=== PATIENT | male | born 1960 | race Caucasian/White ===

== ENCOUNTER 2021-05-03 08:52 | Emergency (ER) | payer SELFPAY ==
[~2021-05-03] VITALS: Ht 177.8 cm; Wt 69.0 kg
[2021-05-03 08:52] VITALS: BP 115/76
[2021-05-03] MEDS ORDERED: IOHEXOL 300 MG/ML 75 ML VIAL. IV ONE (09:45)
[2021-05-03] MEDS ORDERED: MORPHINE SULFATE 4 MG/ML DISP.SYRIN. IV PRN (09:45)
[2021-05-03] MEDS ORDERED: CONTRAST GIVEN. MC PRN (10:00)
--- NOTE | 2021-05-03 10:01 | PHYS DOC ---
Past History Past Surgical History: Other Additional Past Surgical Histo: left shoulder and finger General Adult EDM: Chief Complaint: ABDOMINAL PAIN HPI: HPI: Patient is a 60 year old male without past medical history who presents with 3 days of periumbilical abdominal pain. Is been constant since starting. Constantly worsening. Moves slightly to the left, but otherwise does not radiate. He has associated loss of appetite, but no vomiting. Slight nausea. No diarrhea or constipation. Normal BM earlier today. No bloody stools. No black tarry stools. No dysuria, urgency, or frequency. No back pain. He is not a drinker. Occasional THC. No tobacco use. Review of Systems: Review of Systems: Constitutional: Denies fever or chills Eyes: Denies change in visual acuity HENT: Denies nasal congestion or sore throat Respiratory: Denies cough or shortness of breath Cardiovascular: Denies chest pain or edema GI: Denies abdominal pain, nausea, vomiting, bloody stools or diarrhea : Denies dysuria Musculoskeletal: Denies back pain or joint pain Integument: Denies rash Neurologic: Denies headache, focal weakness or sensory changes Endocrine: Denies polyuria or polydipsia Lymphatic: Denies swollen glands Psychiatric: Denies depression or anxiety Family History: Family History: No pertinent family history Current Medications: Current Meds: Current Medications Medications (Trade) Dose Ordered Sig/Sherri Start Time Stop Time Status Last Admin Dose Admin Info (Do NOT chart on this entry -- for MONITORING) 1 each PRN DAILY PRN 05/03/21 10:00 05/05/21 09:59 Iohexol (Omnipaque 300 Mg/ml) 75 ml 1X ONCE 05/03/21 09:45 05/03/21 09:47 DC Morphine Sulfate (Morphine 4mg Syringe) 4 mg 1X PRN 05/03/21 09:45 Allergies: Allergies: Allergies Coded Allergies Type Severity Reaction Last Updated Verified No Known Drug Allergies 05/03/21 No Physical Exam: PE: Constitutional: Appears uncomfortable. Well developed, well nourished, no acute distress, non-toxic appearance. [] HENT: Normocephalic, atraumatic, bilateral external ears normal, oropharynx moist, no oral exudates, nose normal. [] Eyes: PERRLA, EOMI, conjunctiva normal, no discharge. [] Neck: Normal range of motion, no tenderness, supple, no stridor. [] Cardiovascular:Heart rate regular rhythm, no murmur [] Lungs & Thorax: Bilateral breath sounds clear to auscultation [] Abdomen: Soft. Periumbilical abdominal tenderness. Mild guarding. No rebound. Skin: Warm, dry, no erythema, no rash. [] Back: No tenderness, no CVA tenderness. [] Extremities: No tenderness, no cyanosis, no clubbing, ROM intact, no edema. [] Neurologic: Alert and oriented X 3, normal motor function, normal sensory function, no focal deficits noted. [] Psychologic: Affect normal, judgement normal, mood normal. [] Current Patient Data: Vital Signs: Vital Signs Date Time Temp Pulse Resp B/P (MAP) Pulse Ox O2 Delivery O2 Flow Rate FiO2 05/03/21 08:52 98.1 66 16 115/76 98 Room Air EKG: EKG: NA [] Radiology/Procedures: Radiology/Procedures: CT abdomen/pelvis [] Impressions: [place] [address] IMAGING REPORT Signed PATIENT: VALERIO BORRERO LACCOUNT: [id number] : 1960 LOCATION: ER AGE: 60 SEX: M EXAM STATUS: REG ER ORD. PHYSICIAN: MASTER FLORENTINO MD REASON: periumbilical abdominal pain- CONTRAST ORDERED PROCEDURE: CT ABD PELV W/ IV CONTRST ONLY Exam: CT abdomen/pelvis with intravenous contrast Indication: Periumbilical pain Comparison: None Technique: Helical CT imaging performed of the abdomen and pelvis after the intravenous administration of contrast. Sagittal and coronal reformats were obtained. One or more of the following individualized dose reduction techniques were utilized for this examination: 1. Automated exposure control 2. Adjustment of the mA and/or kV according to patient size 3. Use of iterative reconstruction technique. FINDINGS: Lower chest: Lung bases are clear. Heart is normal in size. Liver: Normal noncontrast appearance of the liver. Gallbladder/Biliary Tree: Normal. Pancreas: Normal. Spleen: Normal. Adrenal Glands: Normal. Kidneys/Ureters/Bladder: Kidneys are normal in size and enhance symmetrically. No hydronephrosis. Ureters and bladder are normal. Reproductive Organs: Normal. Stomach, small bowel, and colon: The stomach is normal. There is no small bowel obstruction. Probable normal appendix seen in the pelvis (image [id number] coronal series). No inflammation in the right lower quadrant. There are a few colonic diverticula. Vasculature: No aortic aneurysm. Lymph Nodes: No lymphadenopathy. Peritoneum and retroperitoneum: No free fluid or free air. Bones: No acute osseous abnormality. Other: No abdominal wall or inguinal hernia. IMPRESSION: No acute abnormality in the abdomen and pelvis. Electronically signed by: Hetal Koenig MD (05/03/2021 11:09 AM) [id number] DICTATED AND SIGNED BY: HETAL KOENIG MD DATE: 05/03/21 105 CC: MASTER FLORENTINO MD; PCP,NO ~MTH0 0 Heart Score: C/O Chest Pain: N/A Risk Factors: Risk Factors: DM, Current or recent (<one month) smoker, HTN, HLP, family history of CAD, obesity. Risk Scores: Score 0 - 3: 2.5% MACE over next 6 weeks - Discharge Home Score 4 - 6: 20.3% MACE over next 6 weeks - Admit for Clinical Observation Score 7 - 10: 72.7% MACE over next 6 weeks - Early Invasive Strategies Course & Med Decision Making: Course & Med Decision Making Pertinent Labs and Imaging studies reviewed. (See chart for details) Patient is 60-year-old man with out pertinent past medical history who presents with 3 days of periumbilical abdominal pain that is been constant and worsening. On arrival is afebrile, hemodynamically stable. Appears uncomfortable on exam ination and has some tenderness to palpation periumbilically as well. DDx includes pancreatitis, gall bladder disease, PUD. Unlikely bleeding PUD given no melena. Will check CBC for signs of anemia. Will check lipase for pancreatitis. Will check LFTs and CMP. CT abdomen/pelvis also pending. Analgesics and antiemetics given. CT returns without acute process. CMP and CBC reassuring. Awaiting urine results to make final disposition plans. 1205 Patient is still feeling nauseous. Did not tolerate a GI cocktail. Was redosed with Zofran. Will p.o. challenge to determine disposition. I will give him a phone number to establish with a PCP. He did tell me on reevaluation that he is living with housemates who are Covid positive. He thinks that they quarantine for the most part, but do share a bathroom. We will check a Covid swab and advise isolation. 1244 UA shows no signs of infection. Patient is doing much better with Zofran. Safe for discharge at this time with outpatient prescription for Zofran. Covid pending at time of discharge. Dragon Disclaimer: Brittney Disclaimer: This electronic medical record was generated, in whole or in part, using a voice recognition dictation system. Departure Departure: Impression: Primary Impression: Periumbilical abdominal pain Disposition: HOME / SELF CARE / HOMELESS Condition: STABLE Referrals: PCP,NO (PCP) Since you do not have a PCP, please call the number for the [facility] at [phone]. Additional Instructions: Your labs, CT, and urine test were all reassuring. We did test you for Covid, this is still pending. Please call tomorrow if you have not heard about your result by noon. Please self isolate till you know the results of your test. For nausea you can take Zofran 4 mg every 4-6 hours as needed. If you have severe, worsening pain, high fevers, inability to keep yourself hydrated due to nausea/vomiting please return to the emergency department for reevaluation. Since you do not have a PCP, please call the number for the [facility] at [phone]. Scripts Ondansetron Hcl (ZOFRAN) 4 Mg Tablet 1 TAB PO Q6HRS PRN for NAUSEA, #12 TAB Prov: MASTER FLORENTINO MD 05/03/21 MASTER FLORENTINO MD May 03, 2021 10:01
[2021-05-03 10:20] LABS: BASO # 0.1 x10^3/uL (0.0-0.2); BASO % 1 % (0-3); EOS % 0 % (0-3); LYMPH # 0.8 x10^3/uL (1.0-4.8); LYMPH % 11 % (24-48); MEAN CORPUSCULAR HEMOGLOBIN 32 pg (25-35); MEAN CORPUSCULAR HGB CONC 34 g/dL (31-37); MEAN CORPUSCULAR VOLUME 94 fL (79-100); MONO # 0.8 x10^3/uL (0.0-1.1); MONO % 11 % (0-9); NEUT # 5.3 x10^3uL (1.8-7.7); NEUT % 77 % (31-73); PLATELET COUNT 203 x10^3/uL (140-400); RED BLOOD COUNT 4.36 x10^6/uL (4.30-5.70); RED CELL DISTRIBUTION WIDTH 13.1 % (11.5-14.5); WHITE BLOOD COUNT 6.9 x10^3/uL (4.0-11.0)
[2021-05-03 10:33] LABS: CALCIUM 8.5 mg/dL (8.5-10.1); CREATININE 0.8 mg/dL (0.7-1.3); GFR 99.3; POTASSIUM 3.6 mmol/L (3.5-5.1)
[2021-05-03 10:38] LABS: ALBUMIN/GLOBULIN RATIO 1.3 (1.0-1.7); TOTAL BILIRUBIN 0.4 mg/dL (0.2-1.0); TOTAL PROTEIN 7.1 g/dL (6.4-8.2)
--- NOTE | 2021-05-03 11:11 | RAD ---
Exam: CT abdomen/pelvis with intravenous contrast Indication: Periumbilical pain Comparison: None Technique: Helical CT imaging performed of the abdomen and pelvis after the intravenous administratio n of contrast. Sagittal and coronal reformats were obtained. One or more of the following individualized dose reduction techniques were utilized for this examinat ion: 1. Automated exposure control 2. Adjustment of the mA and/or kV according to patient size 3. Use of iterative reconstruction technique. FINDINGS: Lower chest: Lung bases are clear. Heart is normal in size. Liver: Normal noncontrast appearance of the liver. Gallbladder/Biliary Tree: Normal. Pancreas: Normal. Spleen: Normal. Adrenal Glands: Normal. Kidneys/Ureters/Bladder: Kidneys are normal in size and enhance symmetrically. No hydronephrosis. Ure ters and bladder are normal. Reproductive Organs: Normal. Stomach, small bowel, and colon: The stomach is normal. There is no small bowel obstruction. Probable normal appendix seen in the pelvis (image [id number] coronal series). No inflammation in the right lower quadrant. There are a few colonic diverticula. Vasculature: No aortic aneurysm. Lymph Nodes: No lymphadenopathy. Peritoneum and retroperitoneum: No free fluid or free air. Bones: No acute osseous abnormality. Other: No abdominal wall or inguinal hernia. IMPRESSION: No acute abnormality in the abdomen and pelvis. Electronically signed by: Hetal Koenig MD (05/03/2021 11:09 AM) [id number]
[2021-05-03] MEDS ORDERED: MAG HYDROX/AL HYDROX/SIMETH 30 ML ORAL.SUSP PO ONE (12:15)
[2021-05-03] MEDS ORDERED: LIDO:MAALOX 1:1 20 ML SINGLE DOSE. PO ONE (12:15)
[2021-05-03] MEDS ORDERED: LIDOCAINE 2% VISCOUS 15 ML SOLUTION. SWSW ONE (12:15)
[2021-05-03] MEDS ORDERED: ONDANSETRON PF 4 MG/2 ML VIAL. ONE (12:39)
[2021-05-03] MEDS ORDERED: ONDANSETRON PF 4 MG/2 ML VIAL. IVP ONE (12:45)
[2021-05-03 12:56] LABS: BILIRUBIN,URINE NEG (NEG); CLARITY,URINE CLEAR; COLOR,URINE YELLOW; GLUCOSE,URINE NEG (NEG)
[2021-05-03 12:57] LABS: NITRITE,URINE NEG (NEG)
[2021-05-03 12:58] LABS: BACTERIA,URINE 0 /HPF (0-FEW); RBC,URINE RARE /HPF (0-2); WBC,URINE 0 /HPF (0-4)
[2021-05-03] MEDS ORDERED: ONDA4TAB7 PO (14:46)
--- NOTE | 2021-05-04 09:31 | NUR ---
IP: Informed pt of positive COVID test and the need to quarantine for 10 days. Pt verbalized understanding.
== END 2021-05-03 14:56 | disposition home or self-care (01) ==
LOC: ER 08:52
DX: U07.1 COVID-19 (principal); R10.33 Periumbilical pain; R11.0 Nausea; R63.0 Anorexia
CPT/HCPCS: 36415; 74177; 80053; 81001; 83690; 85025; 96374; 96375; 99285; J2270; J2405; Q9967; U0003